=== PATIENT | female | born 1980 | race Two or more races ===

== ENCOUNTER 2024-10-12 02:49 | Emergency (ER) | payer MEDICAID, OTHER ==
[~2024-10-12] VITALS: Ht 165.1 cm; Wt 99.0 kg
--- NOTE | 2024-10-12 03:29 | ED.PDOC ---
HPI Comments 44-year-old female with a history of leukemia brought in by family complaining of chest pain. Patient has history of leukemia which she states is in remission currently on chemotherapy. Patient also has history DVT right leg states she was taken off of Eliquis by her primary physician. Also notes she was recently seen at another facility for anemia and received a blood transfusion. At about 2:00 a.m., patient states she woke up due to sudden-onset midsternal chest pain which she described as as if someone is punching me in the chest," constant, non radiating, associated with shortness of breath and headache. Denies any nausea, vomiting, diaphoresis or worsening edema. Chief Complaint: Chest Pain Time Seen by MD: :29 Reviewed Notes: Nurses Notes Allergies: Coded Allergies: NO KNOWN ALLERGIES (Unverified , 10/12/24) Information Source: Patient Mode of Arrival: Ambulatory Severity: Moderate Timing: Minutes Duration: Since onset Location: Substernal Radiation: No Radiation Quality: Pressure Onset: At Rest Cardiac Risk Factors: HTN PE Risk Factors: None Associated Signs and Symptoms: SOB Past Medical History PAST MEDICAL HISTORY: Anemia, Cancer (Leukemia), CVA (Right-sided residual), Thyroid Past Medical History (Other): DVT right leg, leukemia in remission Surgical History: BTL Surgical History (Other): Chemotherapy port, IVC filter CLEANING MAID History: Denies all CLEANING MAID Hx Family History Family History: Reviewed,noncontributory to illness Social History Smoker: Non-Smoker Alcohol: Denies ETOH Use Drugs: Denies Drug Use Lives In: Home Constitutional: denies: chills, diaphoresis, fatigue, fever, malaise, sweats, weakness, others EENTM: denies: blurred vision, double vision, ear bleeding, ear discharge, ear drainage, ear pain, ear ringing, eye pain, eye redness, hearing loss, mouth pain, mouth swelling, nasal discharge, nose bleeding, nose congestion, nose pain, photophobia, tearing, throat pain, throat swelling, voice changes, others Respiratory: reports: SOB at rest, shortness of breath; denies: cough, hemoptysis, orthopnea, SOB with excertion, stridor, wheezing, others Cardiovascular: reports: chest pain; denies: dizzy spells, diaphoresis, Dyspnea on exertion, edema, irregular heart beat, left arm pain, lightheadedness, pal pitations, PND, syncope, others Gastrointestinal: denies: abdomen distended, abdominal pain, blood streaked bowels, constipated, diarrhea, dysphagia, difficulty swallowing, hematemesis, melena, nausea, poor appetite, poor fluid intake, rectal bleeding, rectal pain, vomiting, others Genitourinary: denies: abnormal vagina bleeding, burning, dyspareunia, dysuria, flank pain, frequency, hematuria, incontinence, pain, , vagina discharge, urgency, others Neurological: reports: headache; denies: dizziness, fainting, left sided numbness, left sided weakness, numbness, paresthesia, pre-existing deficit, right sided numbness, right sided weakness, seizure, speech problems, tingling, tremors, weakness, others Musculoskeletal: denies: back pain, gout, joint pain, joint swelling, muscle pain, muscle stiffness, neck pain, others Integumetry: denies: bruises, change in color, change in hair/nails, dryness, laceration, lesions, lumps, rash, wounds, others Allergic/Immunocompromised: denies: Difficulty Healing, Frequent Infections, Hives, Itching, others Hematologic/Lymphatic: denies: anemia, blood clots, easy bleeding, easy bruising, swollen glands, others Endocrine: denies: excessive hunger, excessive sweating, excessive thirst, excessive urination, flushing, intolerance to cold, intolerance to heat, unexplained weight gain, unexplained weight loss, others Psychiatric: denies: anxiety, bipolar disorder, depression, hopeless, panic disorder, schizophrenia, sleepless, suicidal, others Physical Exam General Appearance: Mild Distress, Obese HEENT: Other (Pupils and face symmetric. Moist mucous membranes.) Neck: Full Range of Motion, Normal Inspection Respiratory: Lungs Clear, No Accessory Muscle Use, No Respiratory Distress, Normal Breath Sounds Cardiovascular: No Edema, No JVD, Regular Rate/Rhythm Breast Exam: Deferred Gastrointestinal: Non Tender, Soft Genitalia: Deferred Pelvic: Deferred Rectal: Deferred Extremities: Normal inspection, Normal range of motion, Non-tender, Pedal edema (Trace bilateral) Neurologic: Alert (Oriented x4), Normal Affect, Normal Mood, Other (Ambulatory) Cerebellar Function: NOT DONE Reflexes: NOT DONE Skin: Dry, Pallor, Warm Lymphatic: NOT DONE EKG EKG : Comments Sinus rhythm, rate 82, normal intervals, normal axis, normal QRS, no ST/T changes. Was a procedure done? Was a procedure done?: No CP Differential Dx Differential Diagnosis: Angina, Anxiety / Panic Attack, Electrolyte Disorder, Pulmonary Embolus Differential Diagnosis: CHF Differential Diagnosis: Angina, Chest Wall Pain, Costochondritis, Esophageal reflux/spasm, Gastritis, Myocardial Infarction, Pericarditis, Pneumonia X-Ray, Labs, Meds, VS Vital Signs Date Time Temp Pulse Resp B/P (MAP) Pulse Ox O2 Delivery O2 Flow Rate FiO2 10/12/24 05:31 98.0 74 14 107/71 (83) 98 98.0 10/12/24 05:30 107/71 10/12/24 03:15 98.0 88 20 150/75 (100) 100 98.0 Lab Test 10/12/24 04:30 10/12/24 03:00 Range/Units White Blood Count 9.6 4.4-10.8 10^3/uL Red Blood Count 3.15 L 4.0-5.20 10^6/uL Hemoglobin 9.8 L 12.2-16.2 g/dL Hematocrit 27.2 L 36.0-46.0 % Mean Corpuscular Volume 86.4 80.0-100.0 fL Mean Corpuscular Hemoglobin 31.2 28.0-32.0 pg Mean Corpuscular Hemoglobin Concent 36.1 H 32.0-36.0 g/dL Red Cell Distribution Width 15.0 H 11.8-14.3 % Platelet Count Pending Mean Platelet Volume 6.9 6.9-10.8 fL Neutrophils (%) (Auto) 37.0-80.0 % Lymphocytes (%) (Auto) 10.0-50.0 % Monocytes (%) (Auto) 0.0-12.0 % Basophils (%) (Auto) 0.0-2.0 % Neutrophils # (Auto) 1.6-8.6 10 ^3/uL Lymphocytes # (Auto) 0.4-5.4 10 ^3/uL Monocytes # (Auto) 0-1.3 10 ^3/uL Differential Total Cells Counted Pending Neutrophils % (Manual) Pending Band Neutrophils % (Manual) Pending Lymphocytes % (Manual) Pending Monocytes % (Manual) Pending Eosinophils % (Manual) Pending Basophils % (Manual) Pending Metamyelocytes % (manual) Pending Myelocytes % (Manual) Pending Promyelocytes % (Manual) Pending Blast Cells % (Manual) Pending Reactive Lymphocytes Pending Platelet Estimate Pending Troponin I High Sensitivity 40 *H 50 *H </=34 ng/L Sodium Level 139 136-145 mmol/L Potassium Level 3.8 3.5-5.1 mmol/L Chloride Level 103 98-107 mmol/L Carbon Dioxide Level 24 20-31 mmol/L Anion Gap 12 5-15 Blood Urea Nitrogen 19 9-23 mg/dL Creatinine 1.52 H 0.550-1.02 mg/dL Glomerular Filtration Rate Calc 43 >90 mL/min BUN/Creatinine Ratio 12.5 10.0-20.0 Serum Glucose 107 H 74-106 mg/dL Calcium Level 9.4 8.7-10.4 mg/dL Total Bilirubin 0.4 0.2-1.0 mg/dL Aspartate Amino Transferase (AST) 23 <34 U/L Alanine Aminotransferase (ALT) 24 7-40 U/L Alkaline Phosphatase 195 H 46-116 U/L B-Type Natriuretic Peptide 46.46 0-100 pg/mL Total Protein 7.5 5.7-8.2 g/dL Albumin 3.9 3.2-4.8 g/dL Lipase 23 12-53 U/L Current Medications Medications (Trade) Dose Ordered Sig/Tigre Route Start Time Stop Time Status Last Admin Aspirin 325 mg ONCE ONCE PO 10/12/24 03:30 10/12/24 03:31 DC 10/12/24 05:30 Nitroglycerin (Nitro-Bid) 1 pkg ONCE ONCE TD 10/12/24 03:30 10/12/24 03:31 DC 10/12/24 05:30 PROCEDURE(s): CXRP - CHEST PORTABLE REASON: CHEST PAIN ORDER NUMBER(s): [id number], ACCESSION NUMBER(s): [id number] CHEST RADIOGRAPH Indication: CHEST PAIN Technique: Single frontal view of the chest was obtained COMPARISON: None FINDINGS: Lines and Tubes: None Lungs: Clear Pleura: No effusion. No pneumothorax. Cardiomediastinal contours: Unremarkable Bones: Unremarkable IMPRESSION: 1. No acute disease. X-Ray, Labs, Meds, VS Comment 44-year-old female with a history of leukemia, anemia, thyroid disease, CVA and DVTs complaining of chest pain Vitals remarkable for BP 150/75 Exam unremarkable Rhythm strip independently interpreted by me: Sinus rhythm, rate 82, no ectopy. Chest x-ray no acute disease CBC remarkable for hemoglobin 9.8, hematocrit 27.2, platelets 91, CMP remarkable for creatinine 1.52, lipase normal, serial troponins 50 and 40, BNP 46.46 Patient treated with the following in the ED: Aspirin 325 mg p.o., Nitro-Bid 1/2 inch to chest wall On re-evaluation, patient states pain has improving. Vitals were stable. Plan is to admit the patient for ongoing serial troponins and Cardiology evaluation. V/Q scan is pending to rule out PE. Time of 1ST Reevaluation: 03:18 Reevaluation 1ST: Unchanged Patient Education/Counseling: Diagnosis, Treatment Family Education/Counseling: No Family Present SEPSIS Sepsis Screen Physician Orders Chest Portable (10/12/24 03:21) Electrocardigram (10/12/24 02:51) Troponin-I Hs (10/12/24 05:51) Urinalysis (10/12/24 03:17) Ok To Access Amandeep-Cath (10/12/24 04:24) Complete Blood Count (10/12/24 04:36) Manual Differential (10/12/24 04:36) Manual Differential (10/12/24 04:30) Vital Signs Date Time Temp Pulse Resp B/P (MAP) Pulse Ox O2 Delivery O2 Flow Rate FiO2 10/12/24 05:31 98.0 74 14 107/71 (83) 98 98.0 10/12/24 05:30 107/71 10/12/24 03:15 98.0 88 20 150/75 (100) 100 98.0 Laboratory Tests Test 10/12/24 04:30 White Blood Count 9.6 10^3/uL (4.4-10.8) Medications Medications Dose Ordered Sig/Tigre Route Start Time Stop Time Status Last Admin Dose Admin Aspirin 325 mg ONCE ONCE PO 10/12/24 03:30 10/12/24 03:31 DC 10/12/24 05:30 Nitroglycerin 1 pkg ONCE ONCE TD 10/12/24 03:30 10/12/24 03:31 DC 10/12/24 05:30 Departure 1 Departure Time of Disposition: 06:27 Impression: Primary Impression: Non-STEMI (non-ST elevated myocardial infarction) Disposition: 09 ADMITTED INPATIENT Admit to: Tele Condition: Guarded Critical Care Note Critical Care Time?: Yes (45 min-critical care time only) Critical care comment: Critical care time including multiple bedside re-evaluations, review of lab and imaging studies, and discussion of the case with the admitting provider. Patient is high risk for hemodynamic decompensation. Stability Stability form required: No Heart Score Heart Score: Heart Score Response (Comments) Value History Highly Suspicious 2 EKG Normal 0 Age 45-64 1 Risk Factors 1 or 2 risk factors 1 Troponin 1-2 x's Normal limit 1 Total 5 I personally scribed for AKIL EASTMAN MD ([email or web address]) on 10/12/24 at 03:29. Electronically submitted by Ross Aj ([facility]). AKIL EASTMAN MD Oct 12, 2024 03:29
--- NOTE | 2024-10-12 03:51 | DVH ---
CHEST RADIOGRAPH Indication: CHEST PAIN Technique: Single frontal view of the chest was obtained COMPARISON: None FINDINGS: Lines and Tubes: None Lungs: Clear Pleura: No effusion. No pneumothorax. Cardiomediastinal contours: Unremarkable Bones: Unremarkable IMPRESSION: 1. No acute disease.
[2024-10-12 04:19] LABS: Alanine Aminotransferase 24 U/L (7-40); Albumin 3.9 g/dL (3.2-4.8); Anion Gap 12 (5-15); Aspartate Aminotransferase 23 U/L (<34); BUN/Creatinine Ratio 12.5 (10.0-20.0); Blood Urea Nitrogen 19 mg/dL (9-23); Calcium 9.4 mg/dL (8.7-10.4); Carbon Dioxide 24 mmol/L (20-31); Chloride 103 mmol/L (98-107); Lipase 23 U/L (12-53); Potassium 3.8 mmol/L (3.5-5.1); Sodium 139 mmol/L (136-145); Total Protein 7.5 g/dL (5.7-8.2)
[2024-10-12 04:20] LABS: Bilirubin, Total 0.4 mg/dL (0.2-1.0)
[2024-10-12 04:31] LABS: Alkaline Phosphatase 195 U/L (46-116); Glucose 107 mg/dL (74-106)
[2024-10-12 04:41] LABS: Basophils % (manual) 0 (0.0-2.0); Blast Cells 0; Reactive Lymphocytes 0
[2024-10-12 04:54] LABS: Hematocrit 27.2 % (36.0-46.0); Hemoglobin 9.8 g/dL (12.2-16.2); Mean Corpuscular Hemoglobin 31.2 pg (28.0-32.0); Mean Corpuscular Hgb Conc. 36.1 g/dL (32.0-36.0); Mean Corpuscular Volume 86.4 fL (80.0-100.0); Platelet Count (auto) 91 10^3/uL (140-450); Red Blood Cells 3.15 10^6/uL (4.0-5.20); White Blood Cell 9.6 10^3/uL (4.4-10.8)
[2024-10-12] MEDS: NITROGLYCERIN 2% OINT 1GM PKG TD ONE (05:30)
[2024-10-12] MEDS: ASPirin 325 MG TAB PO ONE (05:30)
[2024-10-12 05:31] VITALS: BP 107/71; PULSE 74; RESP 14; TEMP 98; O2SAT 98
[2024-10-12 06:34] LABS: Platelet Estimate Decreased
[2024-10-12 06:35] LABS: Band Neutrophils % (manual) 23; Eosinophils % (manual) 1 (0-7); Lymphocytes % (manual) 8 (10.0-50.0); Metamyelocytes % 1; Monocytes % (manual) 4 (0-12); Myelocytes % 3; Promyelocytes % 1
--- NOTE | 2024-10-16 14:51 | ECG ---
[facility] Test Date: 2024-10-12 Test Time: 02:56:11 Pat Name: GIFTY LEON Department: ED Room: Gender: F Digital Imaging Technician: BRETT : 1980 Requested By: EMERGENCY EMERGENCY Order Number: [id number] Reading MD: Isaac Santiago Measurements Intervals [place] Rate: 82 P: 45 OR: 138 QRS: 53 QRSD: 85 T: 39 QT: 400 QTc: 468 Interpretive Statements Sinus rhythm Low voltage, precordial leads Electronically Signed On 10-17-2024 9:37:05 PDT by Isaac Santiago Please click the below link to view image of tracing.
== END 2024-10-12 07:57 | disposition left against medical advice (07) ==
LOC: ER 02:49
DX: I21.4 Non-ST elevation (NSTEMI) myocardial infarction (principal); Z86.2 Personal history of diseases of the blood and blood-forming organs and certain disorders involving the immune mechanism; Z86.73 Personal history of transient ischemic attack (TIA), and cerebral infarction without residual deficits; Z98.51 Tubal ligation status; Z86.718 Personal history of other venous thrombosis and embolism; Z85.6 Personal history of leukemia; Z98.890 Other specified postprocedural states
CPT/HCPCS: 36415; 71045; 80053; 83690; 83880; 84484; 85007; 85027; 93005; 99291